=== PATIENT | male | born 1945 | race Asian ===

== ENCOUNTER 2018-06-30 03:03 | Outpatient (CLI) | payer BC, MEDICARE ==
[2018-06-30 11:42] LABS: #Eosinphils 0.2 thou/uL (0.0-0.7); #Lymphocytes 1.9 thou/uL (1.20-3.40); #Monocytes 0.6 thou/uL (0.11-0.59); #Neutrophils 4.2 thou/uL (1.40-6.50); %Basophils 0.6 % (0.0-1.0); %Eosinophils 2.3 % (0.0-10.0); %Lymphocytes 27.4 % (21.0-51.0); %Monocytes 8.7 % (0.0-10.0); Hemoglobin 11.8 g/dL (14.0-18.0); Mean Corpuscular HGB CONC 32.3 g/dL (32.0-36.0); Mean Corpuscular Hemoglobin 28.3 pg (27.0-31.0); Mean Corpuscular Volume 87.6 fL (78.0-98.0); Mean Platelet Volume 7.8 fL (7.4-10.4); Platelet Count 253 thou/uL (130-400); RBC Distribution Width 12.9 % (11.5-14.5); Red Blood Cell (RBC) Count 4.18 mill/uL (4.70-6.10); White Blood Cell (WBC) Count 6.9 thou/uL (4.8-10.8)
[2018-06-30 11:44] LABS: Prothrombin Time 13.6 SEC (12.0-14.7)
[2018-06-30 11:54] LABS: Bacteria/HPF None Seen HPF (None Seen); Hyaline Casts/LPF NONE SEEN LPF (0-3 Hyaline); RBC/HPF None Seen HPF (0-3); Squamous Epithelial 0-3 HPF (0-3); WBC/HPF None Seen HPF (0-3)
[2018-06-30 12:15] LABS: Anion Gap 13 mmol/L (10-20); BUN (Urea Nitrogen) 22 mg/dL (8.4-25.7); Calc. Creatinine Clearance 0 mL/min (70-130); Calcium 10.1 mg/dL (7.8-10.44); Carbon Dioxide 27 mmol/L (23-31); Chloride 102 mmol/L (98-107); Estimated GFR-MDRD 70; Glucose 133 mg/dL (83-110); Potassium 4.8 mmol/L (3.5-5.1); Sodium 137 mmol/L (136-145)
--- NOTE | 2018-06-30 17:23 | EKG ---
Test Reason : Blood Pressure : / mmHG Vent. Rate : 058 BPM Atrial Rate : 058 BPM P-R Int : 188 ms QRS Dur : 084 ms QT Int : 396 ms P-R-T Axes : 066 -08 012 degrees QTc Int : 388 ms Sinus bradycardia Otherwise normal ECG No previous ECGs available Confirmed by DR. Luli CAMERON ([id number]) on 06/30/2018 5:22:54 PM Referred By: IERO Confirmed By:DR. Luli CAMERON
== END 2018-06-30 03:04 | disposition home or self-care (01) ==
LOC: LABBT 03:03
PROVIDERS: ATTEND Orthopaedic Surgery
DX: Z01.818 Encounter for other preprocedural examination (principal); M17.12 Unilateral primary osteoarthritis, left knee
CPT/HCPCS: 80048; 81015; 85025; 85610; 86850; 86870; 86900; 86901; 87081; 93005; 93010

== ENCOUNTER 2018-06-30 09:00 | Inpatient (IN) | payer BC, MEDICARE ==
[2018-06-30 09:55] VITALS: BMI 24.0
[2018-07-07] MEDS ORDERED: Ropivacaine 0.2% HCl/PF 20 ML ONE (06:23)
[2018-07-07] MEDS ORDERED: Lidocaine 1% (PF) 30 ML VIAL ONE ×2 (06:23→07:27)
[2018-07-07] MEDS ORDERED: Fentanyl 100 MCG/2 ML VIAL ONE ×2 (06:23→09:28)
[2018-07-07] MEDS ORDERED: Midazolam HCl 2 mg/2 ml Vial ONE (06:23)
[2018-07-07] MEDS ORDERED: Sodium Chloride 0.9% 100 ML ONE (06:31)
[2018-07-07] MEDS ORDERED: Tranexamic Acid 1,000 MG/10 ML VIAL ONE ×2 (06:31→08:58)
[2018-07-07] MEDS ORDERED: Bupivacaine PF 0.5% 30 ML VIAL ONE (06:43)
[2018-07-07] MEDS ORDERED: methylPREDNISolone Acetate 40 mg/ml Vial ONE (07:27)
[2018-07-07] MEDS ORDERED: Ondansetron PF 4 MG/2 ML Vial IVP PRN ×3 (07:42→15:36)
[2018-07-07] MEDS ORDERED: traMADol HCl 50 MG TAB PO PRN ×2 (07:42)
[2018-07-07] MEDS ORDERED: Promethazine HCl 25 MG/ML VIAL IM PRN ×3 (07:42→08:51)
[2018-07-07] MEDS ORDERED: Ropivacaine HCl/PF 250 ML in Premix Bag 1 BAG NERVE BLCK SCH (07:42)
[2018-07-07] MEDS ORDERED: HYDROcodone/Acetaminophen 10/325 mg Tablet PO PRN (07:42)
[2018-07-07] MEDS ORDERED: Zolpidem Tartrate 5 MG TAB PO PRN ×2 (07:42→08:51)
[2018-07-07] MEDS ORDERED: Fentanyl 100 MCG/2 ML VIAL IV PRN (07:43)
[2018-07-07] MEDS ORDERED: Promethazine HCl 25 MG/ML VIAL SLOW IVP PRN (08:09)
[2018-07-07] MEDS ORDERED: Ondansetron HCl/PF 4 MG/2 ML Vial IVP PRN (08:09)
[2018-07-07] MEDS ORDERED: Acetaminophen 325 MG TAB PO PRN (08:51)
[2018-07-07] MEDS ORDERED: diphenhydrAMINE 25 MG CAP PO PRN (08:51)
[2018-07-07] MEDS ORDERED: Fluticasone Propionate Nasal Spray 16 gm Bottle NASAL PRN (08:53)
[2018-07-07] MEDS ORDERED: Tranexamic Acid 1,000 MG in Sodium Chloride 0.9% 100 ML IVPB SCH (09:00)
[2018-07-07] MEDS ORDERED: Cyanocobalamin (Vitamin B-12) 1,000 MCG TAB PO SCH (09:00)
[2018-07-07] MEDS ORDERED: Non-Formulary Item 1 EACH (Multivit-Min/Fa/Lycopen/Lutein [Centrum Silver Men Tablet] 1 T PO SCH (09:00)
[2018-07-07] MEDS ORDERED: CEFAZOLIN 2 GM in Premix Bag 1 BAG IVPB SCH (09:00)
[2018-07-07] MEDS: Valsartan 80 MG TAB PO SCH (10:58)
[2018-07-07] MEDS ORDERED: Ropivacaine 0.5% HCl/PF (150 MG/30 ML VIAL) ONE (12:15)
[2018-07-07] MEDS ORDERED: PROPOFOL 200 MG/20 ML VIAL ONE (12:53)
[2018-07-07] MEDS ORDERED: Lidocaine 1% PF 5 ML VIAL ONE (12:53)
[2018-07-07] MEDS ORDERED: Ondansetron PF 4 MG/2 ML Vial ONE (12:53)
[2018-07-07] MEDS ORDERED: ePHEDrine 50 MG/ML VIAL ONE (12:53)
--- NOTE | 2018-07-07 13:33 | OP ---
DATE OF PROCEDURE: 07/07/2018 PREOPERATIVE DIAGNOSIS: Bilateral knee arthritis, left worse than right. POSTOPERATIVE DIAGNOSIS: Bilateral knee arthritis, left worse than right. PROCEDURES PERFORMED: 1. Left total knee replacement using Synovex pinless navigation. 2. Right knee corticosteroid injection. FORK TRUCK DRIVER: Juice Hoff PA-C. BLOOD LOSS: Minimal. COMPLICATIONS: None. ANESTHESIA: The patient had general anesthetic as well as preoperative block. IMPLANTS: To the left knee, [place] [employer] total knee system. The femur was a size 3 cruciate retaining femur. We used a size 3 primary tibial baseplate. We used a 3 x 9 mm CS X3 tibial poly and an asymmetric 29 x 9 X3 patella. DISPOSITION: He did go to Recovery in stable condition. 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 PROCEDURE IN DETAIL: After all appropriate consent forms were explained and signed, his right knee was cleaned off with alcohol, and then injection was performed into the knee with 80 mg of Depo-Medrol and local. Band-Aid was applied. After all appropriate consent forms were explained and signed, the patient was taken back to the operating room and at this time was given general anesthetic. Once the level of anesthesia was appropriate, a well-padded tourniquet was placed on the left leg, and the leg was then prepped and draped in standard surgical fashion. The limb was exsanguinated and tourniquet taken up to 300 mmHg. Midline incision was made with a 10 blade down through the skin and subcutaneous tissue. Bovie electrocautery was used to coagulate any brisk venous bleeding. A new blade was used to make a medial parapatellar arthrotomy. Small subperiosteal release was performed medially and excess fat pad was removed. The knee was flexed up to gain access to the femur. The femur was navigated and distal femoral resection was made. Epicondylar access was used to align our sizing jig and this was pinned in place. We sized our femur to be a 3. 4:1 cutting block was applied and pinned. Anterior and posterior chamfer cuts were then made. We navigated out our proximal tibia and made our proximal tibial resection. Spreaders were used to remove any posterior osteophytes off the back of the femur as well as remaining meniscal tissue. A long alignment chele was then used to achieve correct rotation of our tibial baseplate and a size 3 was chosen. This was pinned in place. We trialed the polyethylene and a 3 x 9 mm CS X3 polyethylene gave us full extension and good stability throughout range of motion. Two towel clips and a saw were used to cut our patella. Three lug nuts were drilled and an asymmetric 29 x 9 X3 patella was trialed which sat nicely in the trochlear groove. We then drilled our femur and punched our tibia. All components were removed. The knee was thoroughly irrigated and dried. Cement was mixed into the cement gun on the back table. Components were then placed. The knee was held out in full extension until the cement had dried. All excess bone cement was removed. Multiple #2 Vicryl stitches as well as a Quill were used to close our extensor mechanism. 0 Quill followed by a running Monoderm was then used to close the skin. Surgicel glue was then used on the skin. Once this had dried, soft tissue dressing was applied to the limb, tourniquet was let down, and the toes pinked up nicely. The patient was then awakened and taken to the recovery room in stable condition. All counts were correct at the end of the case. The patient did receive preoperative IV antibiotics. The patient was injected with Exparel for postoperative pain relief. Job ID: [id number]
[2018-07-07] MEDS: Tamsulosin HCl 0.4 MG CAP PO SCH (15:26)
[2018-07-07] MEDS: CEFAZOLIN 2 GM in Premix Bag 1 BAG IVPB SCH ×2 (15:27→21:04)
[2018-07-07] MEDS: Sodium Chloride 0.9% 1,000 ML IV SCH ×2 (15:28→20:35)
[2018-07-07] MEDS: Ketorolac Tromethamine 30 MG/ML VIAL IVP SCH ×2 (15:28→16:38)
[2018-07-07] MEDS: Aspirin 81 mg Enteric Coated Tablet PO SCH ×2 (15:34→20:01)
[2018-07-07] MEDS ORDERED: Dextrose 50% Abboject 50 ML SYRINGE SLOW IVP PRN (15:36)
[2018-07-07] MEDS ORDERED: Ondansetron ODT 4 MG TAB PO PRN (15:36)
[2018-07-07] MEDS ORDERED: Dextrose 5% in Water 1,000 ML IV PRN (15:36)
[2018-07-07] MEDS ORDERED: HumaLOG 300 UNITS/3 ML VIAL SC PRN (15:36)
[2018-07-07] MEDS ORDERED: hydrALAZINE 20 MG/ML VIAL SLOW IVP PRN (15:36)
[2018-07-07] MEDS: HumaLOG 300 UNITS/3 ML VIAL SC PRN (16:43)
[2018-07-07] MEDS ORDERED: Vancomycin HCl 1 GM in Premix Bag 1 BAG IVPB SCH (18:00)
[2018-07-07] MEDS: Rosuvastatin 10 MG TAB PO SCH (20:01)
[2018-07-07] MEDS: Fish Oil 1,000 MG CAP PO SCH (20:01)
--- NOTE | 2018-07-07 21:50 | CON ---
DATE OF CONSULTATION: PRIMARY CARE PHYSICIAN: Negrito Tate MD REASON FOR CONSULTATION: For medical management. HISTORY OF PRESENT ILLNESS: Mr. Hardy is a very pleasant 72-year-old gentleman, who has a history of bilateral osteoarthritis of the knees. He has had significant pain in both knees, but the left knee was much more than the right and he is being admitted for an elective left total knee replacement. Currently, he has no complaints. He is postop. He denies any headache or dizziness. No chest pain. No shortness of breath. No PND. No orthopnea. He has had a little nausea, but he attributes that to the anesthesia. He denies any leg pain at this time and he has not had any swelling in the legs. The patient has again hypertension and diabetes, which has been controlled. REVIEW OF SYSTEMS: All systems were reviewed and are negative except for that mentioned in history of present illness. PAST MEDICAL HISTORY: Significant for hypertension, diabetes mellitus, type 2, hypothyroidism, osteoarthritis, vitamin B12 deficiency, hyperlipidemia, and BPH. PAST SURGICAL HISTORY: He has had bypass surgery as well as a cholecystectomy. ALLERGIES: TO IODINE. SOCIAL HISTORY: He is single. He is a nonsmoker. He denies any alcohol use and he has 2 children. FAMILY HISTORY: Significant for hypertension in both parents. CURRENT MEDICATIONS: Include; 1. Valsartan and hydrochlorothiazide 320/25 once a day. 2. Tamsulosin 0.4 mg at bedtime. 3. Crestor 10 mg at bedtime. 4. Lovaza 2 g twice a day. 5. one tablet daily. 6. Metoprolol succinate 50 mg daily. 7. Metformin extended release 750 mg q.p.m. 8. Levothyroxine 125 mcg p.o. daily. 9. Flonase nasal spray in each naris daily. 10. Vitamin B12 a 1000 mcg subcu daily. 11. Aspirin 81 mg a day. PHYSICAL EXAMINATION: GENERAL: He is alert and oriented. He appears to be in no acute distress. He is well developed and well nourished. VITAL SIGNS: Blood pressure is 128/78, heart rate 64, respiratory rate of 16, temperature is 97.8. HEENT: His pupils are equal, round, and reactive to light. Extraocular muscles are intact. His sclerae are anicteric. Throat, no erythema, no exudates. NECK: No adenopathy, no bruits. LUNGS: Clear to auscultation. There is no wheezing, no rales, no rhonchi. CARDIOVASCULAR: He has a normal S1, S2. There is no S3 or S4. No murmurs, clicks, or rubs. ABDOMEN: Soft, it is nontender and nondistended. Positive for bowel sounds. No rebound. No guarding. EXTREMITIES: There is no edema except on the left lower extremity there is some mild calf edema. NEUROLOGICAL: He is moving all extremities. SKIN AND INTEGUMENT: There are no skin changes. No rash. LABORATORY DATA: He had lab results done on 06/30 of this month, which were reviewed. He had an EKG also preop, which showed sinus bradycardia. There were no acute ST changes. ASSESSMENT: This is a pleasant 72-year-old gentleman, who is being admitted for a left total knee replacement. Currently, he is clinically stable. His blood pressure is controlled. 1. For hypertension, we will continue the valsartan and hydrochlorothiazide as well as p.r.n. medications for elevated blood pressure. 2. For diabetes mellitus, he will be placed on a sliding scale insulin and metformin can be started tomorrow. 3. Hypothyroidism. He appears to be clinically euthyroid and we will continue levothyroxine. 4. Dyslipidemia. Continue Lovaza as well as Crestor and further recommendations as per Orthopedic Surgery. Job ID: [id number]
[2018-07-08] MEDS: Ketorolac Tromethamine 30 MG/ML VIAL IVP SCH ×5 (00:14→22:58)
[2018-07-08] MEDS: Levothyroxine Sodium 125 MCG TAB PO SCH (05:29)
[2018-07-08] MEDS: Sodium Chloride 0.9% 1,000 ML IV SCH ×2 (05:31→16:23)
[2018-07-08 07:08] LABS: Hemoglobin 10.7 g/dL (14.0-18.0); Mean Corpuscular HGB CONC 34.2 g/dL (32.0-36.0); Mean Corpuscular Hemoglobin 29.3 pg (27.0-31.0); Mean Corpuscular Volume 85.8 fL (78.0-98.0); Platelet Count 226 thou/uL (130-400); RBC Distribution Width 12.7 % (11.5-14.5); Red Blood Cell (RBC) Count 3.66 mill/uL (4.70-6.10); White Blood Cell (WBC) Count 12.4 thou/uL (4.8-10.8)
--- NOTE | 2018-07-08 08:27 | PRG ---
DATE OF SERVICE: 07/08/2018 SUBJECTIVE: Jeanmarie is a 72-year-old male, who is postop day 1 from left total knee arthroplasty. He is very comfortable this morning, doing relatively well. He has no complaints currently. OBJECTIVE: VITAL SIGNS: Temperature 98.2, respiratory rate 16 and nonlabored, blood pressure 148/68. GENERAL: He is alert and oriented to person, place, time, situation, grossly nonfocal, appropriate and responsive with examiner. EXTREMITIES: His incision is clean and closed without any erythema, and he is neurovascularly intact in the left lower extremity. There is no strike through noted. LABORATORY DATA: Hemoglobin and hematocrit 10.7 and 31.4. IMPRESSION: 1. A 72-year-old male, postop day 1 left total knee arthroplasty. 2. Mild asymptomatic hemorrhagic anemia. PLAN: Continue current care. Plan for discharge home tomorrow. Job ID: [id number]
[2018-07-08] MEDS: HYDROcodone/Acetaminophen 10/325 mg Tablet PO PRN (08:42)
[2018-07-08] MEDS: Fish Oil 1,000 MG CAP PO SCH ×2 (08:45→20:23)
[2018-07-08] MEDS: Aspirin 81 mg Enteric Coated Tablet PO SCH ×2 (08:45→20:22)
[2018-07-08] MEDS: Valsartan 80 MG TAB PO SCH ×2 (08:46→08:50)
[2018-07-08] MEDS: Multivitamin W/ Minerals 1 TAB PO SCH (08:49)
[2018-07-08] MEDS: Senokot S 8.6-50 MG TAB PO SCH ×2 (08:49→20:24)
[2018-07-08] MEDS: Ferrous Gluconate 324 MG TAB PO SCH ×2 (08:49→18:08)
[2018-07-08] MEDS ORDERED: Hydrochlorothiazide 25 MG TAB PO SCH ×2 (09:00)
[2018-07-08] MEDS: HCTZ PO SCH (10:23)
[2018-07-08] MEDS: VALSARTAN PO SCH (10:23)
[2018-07-08] MEDS: METFORMIN HCL 750 MG PO SCH ×3 (10:24→18:59)
[2018-07-08] MEDS: HumaLOG 300 UNITS/3 ML VIAL SC PRN (12:34)
--- NOTE | 2018-07-08 14:36 | PDOC.PN ---
- Subjective Encounter Start Date: 07/08/18 Encounter Start Time: 14:34 Mr. Hardy was seen today in follow-up of medical management following knee replacement surgery. He does not have any complaints today. He ambulated in the halls without difficulty. - Objective MAR Reviewed: Yes Vital Signs & Weight: Vital Signs (12 hours) Temp Pulse Resp BP Pulse Ox 07/08/18 12:30 97.2 F L 66 18 142/52 H 98 07/08/18 08:00 98 07/08/18 07:15 98 F 74 16 155/63 H 98 07/08/18 04:00 98.2 F 79 16 148/68 H 95 Weight Admit Weight 140 lb Weight 140 lb I&O: 07/07/18 07/08/18 07/09/18 06:59 06:59 06:59 Intake Total 1780 Output Total 625 Balance 1155 Result Diagrams: 07/08/18 06:26 Additional Labs: Accuchecks 07/08/18 07/08/18 07/07/18 11:23 05:23 20:07 POC Glucose 184 H 169 H 231 H 07/07/18 15:52 POC Glucose 185 H Phys Exam - Physical Examination HEENT: PERRLA Respiratory: no wheezing, no rales, no rhonchi, clear to auscultation bilateral Cardiovascular: RRR, no significant murmur, no rub Gastrointestinal: soft, non-tender, no distention, positive bowel sounds Musculoskeletal: no edema, pulses present Neurological: non-focal, normal sensation, moves all 4 limbs Dx/Plan (1) Hypertension Code(s): I10 - ESSENTIAL (PRIMARY) HYPERTENSION Status: Chronic (2) Diabetes mellitus type 2 in nonobese Code(s): E11.9 - TYPE 2 DIABETES MELLITUS WITHOUT COMPLICATIONS Status: Chronic (3) Osteoarthritis of knees, bilateral Code(s): M17.0 - BILATERAL PRIMARY OSTEOARTHRITIS OF KNEE Status: Chronic (4) Status post left knee replacement Code(s): Z96.652 - PRESENCE OF LEFT ARTIFICIAL KNEE JOINT Status: Acute - Plan * HTN- blood pressure is a bit elevated- will continue the current medications * DM- also a bit elevated but in manageable range- re-start Metformin tomorrow and SSI * Continue PT/OT as per Orthopedic Surgery * Possible discharge home tomorrow
[2018-07-08] MEDS: Tamsulosin HCl 0.4 MG CAP PO SCH (20:23)
[2018-07-08] MEDS: Rosuvastatin 10 MG TAB PO SCH (20:24)
[2018-07-09] MEDS: Sodium Chloride 0.9% 1,000 ML IV SCH ×2 (02:04→08:42)
[2018-07-09 05:00] LABS: Hemoglobin 9.8 g/dL (14.0-18.0); Mean Corpuscular HGB CONC 33.3 g/dL (32.0-36.0); Mean Corpuscular Hemoglobin 28.8 pg (27.0-31.0); Mean Corpuscular Volume 86.5 fL (78.0-98.0); Mean Platelet Volume 7.8 fL (7.4-10.4); Platelet Count 201 thou/uL (130-400); RBC Distribution Width 12.8 % (11.5-14.5); Red Blood Cell (RBC) Count 3.41 mill/uL (4.70-6.10); White Blood Cell (WBC) Count 9.5 thou/uL (4.8-10.8)
[2018-07-09] MEDS: Ketorolac Tromethamine 30 MG/ML VIAL IVP SCH (06:02)
[2018-07-09] MEDS: Levothyroxine Sodium 125 MCG TAB PO SCH (06:02)
[2018-07-09] MEDS: Ferrous Gluconate 324 MG TAB PO SCH (08:27)
[2018-07-09] MEDS: Aspirin 81 mg Enteric Coated Tablet PO SCH (08:28)
[2018-07-09] MEDS: Fish Oil 1,000 MG CAP PO SCH (08:28)
[2018-07-09] MEDS: METFORMIN HCL 750 MG PO SCH (08:28)
[2018-07-09] MEDS: HCTZ PO SCH (08:29)
[2018-07-09] MEDS: Senokot S 8.6-50 MG TAB PO SCH (08:29)
[2018-07-09] MEDS: Multivitamin W/ Minerals 1 TAB PO SCH (08:29)
[2018-07-09] MEDS: VALSARTAN PO SCH (08:29)
[2018-07-09] MEDS: HYDROcodone/Acetaminophen 10/325 mg Tablet PO PRN (09:50)
[2018-07-09 11:52] VITALS: BP 161/62; TEMP 97.5
--- NOTE | 2018-07-10 06:01 | DIS ---
DATE OF ADMISSION: 07/07/2018 DATE OF DISCHARGE: 07/09/2018 PRIMARY CARE PHYSICIAN: Dr. Tate. DISCHARGE DISPOSITION: Home. PRIMARY DISCHARGE DIAGNOSES: 1. Bilateral osteoarthritis of the knees. 2. Left total knee replacement. 3. Hypertension. 4. Diabetes mellitus, type 2. DISCHARGE MEDICATIONS: Include, 1. Aspirin 81 mg daily. 2. Valsartan/hydrochlorothiazide 320/25 one daily. 3. Flomax 0.4 mg at bedtime. 4. Crestor 10 mg at bedtime. 5. Lovaza 2 g twice a day. 6. Multivitamin with lutein one tablet daily. 7. Metoprolol succinate 50 mg daily. 8. Glucophage XR 750 mg twice a day. 9. Levothyroxine 125 mcg p.o. daily. 10. Flonase nasal spray in each naris daily. 11. Vitamin B12 of 1000 mcg subcu . CODE STATUS: Full code. ALLERGIES: TO IODINE. PROCEDURES DONE DURING THE ADMISSION: The patient had a left total knee replacement surgery. HOSPITAL COURSE: Mr. Hardy is a pleasant 72-year-old gentleman, who has a history of severe osteoarthritis in both lower extremities. He also has a history of hypertension and diabetes. He was admitted for an elective left total knee replacement. He had the procedure done on 07/07/2018. The Hospitalist Service was consulted for medical management. He had an uneventful postoperative course. His blood pressure and diabetes remained well controlled, and he was able to be discharged home on 07/09/2018 in stable condition. Job ID: [id number]
== END 2018-07-09 14:31 | disposition home or self-care (01) | DRG 470 ==
LOC: SJJU 07-07 05:33
PROVIDERS: ADMIT Orthopaedic Surgery; ATTEND Orthopaedic Surgery
PROC: 0SRD0J9 Replacement of Left Knee Joint with Synthetic Substitute, Cemented, Open Approach (ICD-10-PCS; principal; 2018-07-07)
PROC: 3E0U33Z Introduction of Anti-inflammatory into Joints, Percutaneous Approach (ICD-10-PCS; 2018-07-07)
DX: M17.0 Bilateral primary osteoarthritis of knee (principal); E11.9 Type 2 diabetes mellitus without complications; E03.9 Hypothyroidism, unspecified; E78.5 Hyperlipidemia, unspecified; N40.0 Benign prostatic hyperplasia without lower urinary tract symptoms; E53.8 Deficiency of other specified B group vitamins; I10 Essential (primary) hypertension; D64.9 Anemia, unspecified; Z91.041 Radiographic dye allergy status; Z95.1 Presence of aortocoronary bypass graft; Z95.5 Presence of coronary angioplasty implant and graft; Z79.84 Long term (current) use of oral hypoglycemic drugs; Z79.82 Long term (current) use of aspirin; Z90.49 Acquired absence of other specified parts of digestive tract
CPT/HCPCS: 36415; 36416; 85027; 86850; 86870; 86880; 86900; 86901; 86905; 86922; C1713; C1776; J0690; J1030; J1885; J2001; J2250; J2405; J2704; J2795; J3010; J3370; J3490; S0020

== ENCOUNTER 2018-07-24 07:10 | Emergency (ER) | payer BC, MEDICARE ==
[2018-07-24 07:41] LABS: #Basophils 0.1 thou/uL (0.0-0.2); #Eosinphils 0.2 thou/uL (0.0-0.7); #Lymphocytes 1.2 thou/uL (1.20-3.40); #Monocytes 0.5 thou/uL (0.11-0.59); #Neutrophils 4.8 thou/uL (1.40-6.50); %Basophils 1.6 % (0.0-1.0); %Eosinophils 3.6 % (0.0-10.0); %Lymphocytes 17.4 % (21.0-51.0); %Monocytes 6.8 % (0.0-10.0); %Neutrophils 70.6 % (42.0-75.0); Hemoglobin 11.3 g/dL (14.0-18.0); Mean Corpuscular HGB CONC 34.2 g/dL (32.0-36.0); Mean Corpuscular Hemoglobin 28.6 pg (27.0-31.0); Mean Corpuscular Volume 83.4 fL (78.0-98.0); Mean Platelet Volume 6.4 fL (7.4-10.4); Platelet Count 474 thou/uL (130-400); Red Blood Cell (RBC) Count 3.95 mill/uL (4.70-6.10); White Blood Cell (WBC) Count 6.8 thou/uL (4.8-10.8)
[2018-07-24 07:52] LABS: ALT (SGPT) 29 U/L (8-55); AST (SGOT) 25 U/L (5-34); Alkaline Phosphatase 80 U/L (40-150); Anion Gap 18 mmol/L (10-20); BUN (Urea Nitrogen) 19 mg/dL (8.4-25.7); Bilirubin, Total 0.6 mg/dL (0.2-1.2); Calc. Creatinine Clearance 0 mL/min (70-130); Calcium 10.2 mg/dL (7.8-10.44); Carbon Dioxide 22 mmol/L (23-31); Chloride 95 mmol/L (98-107); Estimated GFR-MDRD 71; Globulin 3.5 g/dL (2.4-3.5); Glucose 138 mg/dL (83-110); Lipase 30 U/L (8-78); Magnesium 1.7 mg/dL (1.6-2.6); Potassium 4.5 mmol/L (3.5-5.1); Protein, Total 7.5 g/dL (5.8-8.1); Sodium 130 mmol/L (136-145)
--- NOTE | 2018-07-24 08:08 | ULT ---
EXAM: Bilateral lower extremity venous duplex: Deep veins evaluated with color Doppler, spectral analysis, and compression. INDICATIONS: Bilateral lower extremity pain and edema. FINDINGS: Deep veins interrogated include common femoral vein, femoral vein, popliteal vein, and post erior tibial vein. These veins show normal compression and blood flow. No evidence of DVT. IMPRESSION: Negative Bilateral venous duplex exam.
--- NOTE | 2018-07-24 08:15 | RAD ---
Exam: Chest one view HISTORY:Chest palpitation. Comparison: None FINDINGS: Cardiac silhouette:Normal cardiac silhouette. Sternotomy wires and vascular rings are noted. Pulmonary vessels: Normal Costophrenic angles: Clear LUNGS: No masses or consolidation. Pneumothorax: None Osseous abnormalities: None IMPRESSION: No acute cardiopulmonary process.
== END 2018-07-24 09:13 | disposition home or self-care (01) ==
LOC: SCSER 07:10
DX: R00.2 Palpitations (principal); D64.9 Anemia, unspecified; E87.1 Hypo-osmolality and hyponatremia; E03.9 Hypothyroidism, unspecified; I49.3 Ventricular premature depolarization; D47.3 Essential (hemorrhagic) thrombocythemia
CPT/HCPCS: 71045; 80053; 83690; 83735; 84443; 84484; 85025; 93005; 93970

== ENCOUNTER 2019-11-16 07:25 | Outpatient (CLI) | payer BC ==
[2019-11-16] MEDS ORDERED: Iopamidol 370 76% 100 ML VIAL ONE (08:47)
--- NOTE | 2019-11-16 08:53 | CT ---
CT ABDOMEN AND PELVIS WITH IV CONTRAST 11/16/2019 CLINICAL INFORMATION: B12 and iron deficiency anemia. Tumor of stomach. Follow-up stomach cancer. COMPARISON: None. Technique: Multiple contiguous axial CT images are obtained through the abdomen and pelvis with IV contrast. Cor onal reformatted images are provided. FINDINGS: Lower Chest: Median sternotomy wires are seen. No pulmonary nodule or mass is seen at either lung bas e. There is linear scar versus atelectasis at the left lung base. Vessels: Vascular calcifications in the abdominal aorta and iliac arteries. Abdomen: Portal vein:Patent Gallbladder: Surgically absent. Liver: within normal limits. No hepatic lesion is seen Spleen: within normal limits. Pancreas: within normal limits. Adrenals: A circumscribed round 2.4 cm hypodense nodule is seen involving the left adrenal gland. Thi s cannot be further characterized on this postcontrast CT abdomen and pelvis. A follow-up CT abdomen without IV contrast is recommended. Kidneys: Subcentimeter too small to characterize hypodense lesion is seen midportion right kidney. Th ere are 3 exophytic hypodense lesions involving the left kidney demonstrating fluid attenuation compatible with cysts. Largest cyst is in the superior pole left kidney measuring 2.4 cm. Bowel: Normal in caliber. The stomach is decompressed. An obvious mass associated with the stomach is not visualized. Appendix: The appendix is visualized and normal in caliber. Peritoneum: No ascites or free air; no fluid collection. Mesentery and Retroperitoneum: No enlarged mesenteric or retroperitoneal lymph nodes. Abdominal Wall: within normal limits. Pelvis: Reproductive Organs: No pelvic masses. Bladder: Decompressed. Bones: Multilevel degenerative changes greatest at the L4-5 level where there is grade 1 anterolisthe sis of L4 on L5 measuring approximately 5 mm. Endplate degenerative changes are seen at this level. A small 10 mm lytic lesion is seen in the right iliac bone adjacent to the superior aspect of the rig ht sacroiliac joint. There is suggestion of slight endosteal scalloping present. Solitary osseous metastatic lesion could not be excluded. IMPRESSION: 1. Left adrenal nodule. Further evaluation with CT abdomen without IV contrast is recommended for fur ther evaluation. 2. Small 10 millimeter lytic lesion right iliac bone with suggestion of slight endosteal scalloping. A solitary metastatic lesion cannot be excluded. MRI is recommended for further evaluation.
== END 2019-11-16 07:26 | disposition home or self-care (01) ==
LOC: CT 07:25
PROVIDERS: ATTEND Internal Medicine Gastroenterology
DX: D3A.092 Benign carcinoid tumor of the stomach (principal); D50.9 Iron deficiency anemia, unspecified; D51.9 Vitamin B12 deficiency anemia, unspecified; M89.9 Disorder of bone, unspecified; E27.8 Other specified disorders of adrenal gland
CPT/HCPCS: 74177; 82565; Q9967

== ENCOUNTER 2020-08-18 13:07 | Outpatient (CLI) | payer BC | END 2020-08-18 13:08 | disposition home or self-care (01) | LOC: BICULT 13:07 | PROVIDERS: ATTEND Internal Medicine Cardiovascular Disease | DX: N18.31 Chronic kidney disease, stage 3a (principal); N28.1 Cyst of kidney, acquired | CPT/HCPCS: 76770 ==

== ENCOUNTER 2020-11-09 08:44 | Outpatient (CLI) | payer BC | END 2020-11-09 08:45 | disposition home or self-care (01) | LOC: SCSRAD 08:44 | PROVIDERS: ATTEND Internal Medicine Cardiovascular Disease | DX: R06.02 Shortness of breath (principal) | CPT/HCPCS: 71046 ==

== ENCOUNTER 2021-01-06 07:31 | Outpatient (CLI) | payer BC | END 2021-01-06 07:32 | disposition home or self-care (01) | LOC: TBSIIMAG 07:31 | PROVIDERS: ATTEND Anesthesiology Pain Medicine | DX: M48.062 Spinal stenosis, lumbar region with neurogenic claudication (principal); M43.16 Spondylolisthesis, lumbar region; M51.36 Other intervertebral disc degeneration, lumbar region | CPT/HCPCS: 72148 ==

== ENCOUNTER 2021-06-21 08:22 | Outpatient (CLI) | payer BC | END 2021-06-21 08:23 | disposition home or self-care (01) | LOC: SCSRAD 08:22 | PROVIDERS: ATTEND Family Medicine | DX: Z00.00 Encounter for general adult medical examination without abnormal findings (principal) | CPT/HCPCS: 71046 ==

== ENCOUNTER 2023-03-27 08:11 | Outpatient (CLI) | payer BC | END 2023-03-27 08:12 | disposition home or self-care (01) | LOC: SCSRAD 08:11 | PROVIDERS: ATTEND Internal Medicine Gastroenterology | DX: D3A.092 Benign carcinoid tumor of the stomach (principal); D50.9 Iron deficiency anemia, unspecified; K29.40 Chronic atrophic gastritis without bleeding; D51.9 Vitamin B12 deficiency anemia, unspecified; R63.4 Abnormal weight loss | CPT/HCPCS: 71046 ==